=== PATIENT | female | born 1940 | race Caucasian/White ===

== ENCOUNTER → 2017-01-05 | Outpatient (CLI) | payer MEDICARE, OTHER ==
[~2017-01-05] MED LIST: AMLO5TAB4 PO; CARV6.2579 PO; ESTR2TAB PO; IRBE1TAB35 PO; MEDR2.5T21 PO
--- NOTE | 2017-01-05 17:52 | RADRPT ---
PROCEDURE: XR right kidney. CLINICAL INDICATION: Knee pain TECHNIQUE: AP weightbearing, lateral weightbearing and sunrise view are available for review. COMPARISON: 03/25/2016 FINDINGS: There is moderate osteoarthrosis involving the medial tibial femoral compartment, lateral tibial fem oral compartment and patellofemoral compartment. This is associated with joint space narrowing, subc hondral sclerosis and osteophytosis. There is otherwise normal mineralization, architecture and alignment. No fractures are identified. No osseous lesions are identified. The soft tissues are unremarkable. IMPRESSION: Moderate osteoarthrosis involving the medial tibial femoral compartment, lateral tibial femoral comp artment and patellofemoral compartment. RPTAT: HGDB .Rohit Lopez MD, MD Date Time Electronically viewed and signed by .Rohit Lopez MD, on 01/05/2017 17:52 .B/
--- NOTE | 2017-01-05 19:39 | HKNOTE ---
DATE OF SERVICE: 01/05/2017 The patient has degenerative osteoarthritis of her right knee. She comes in requesting a cortisone injection into the knee. The last injection gave her good relief. She can walk as far as she likes . She has no symptoms of an internal derangement of the knee. She does not use a cane. She is not on any medications for the knee. Note that she is back to ice skating since she had a left knee re placement. RIGHT KNEE: The right knee shows normal alignment. Active and passive extension is 0 degrees. Activ e and passive flexion lacks 20 degrees and there is marked pain. The medial and lateral collateral l igaments and cruciate ligaments are intact. Herrera test is negative. There is no effusion, tenderne ss, scarring, or cysts. Six plus crepitus of the knee and none in the patella. The patella tracks normally. There is no tenderness on the articular surface of the patella or in the patellar groove. The Q angle is normal. IMAGING: Plain x-rays of the right knee obtained today were reviewed and . Plain x-rays obtromán cottrell at the [facility] [place] today were reviewed (3 views). These show moderate narrowin g of the medial and lateral joint spaces and more marked narrowing of the patellofemoral joint. MANAGEMENT: Under sterile conditions, the patient was given injection of 2 mL of Kenalog and 6 mL o f 2% lidocaine into the knee and she will be seen again as necessary for further evaluation and candida tment. Dictated By: LANDRY FAULKNER/RICO Conf#: [id number] DID#: [id number]
== END | disposition home or self-care (01) ==
LOC: HKI 14:22
DX: M17.11 Unilateral primary osteoarthritis, right knee (principal)
CPT/HCPCS: 20610; 73562; G0463; J3301

== ENCOUNTER → 2019-02-23 | Outpatient (CLI) | payer MEDICARE, OTHER ==
--- NOTE | 2019-02-23 18:04 | CONS ---
Assessment/Plan Assessment/Plan Hospital Course (Demo Recall) 78-year-old female with right hip and knee pain. 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 However on radiographs of the hip today there are subtle lytic lesions at the base of the femoral neck. Given her history of 2 cancers and most recently lymphoma this needs to be further worked up to make sure this is not metastasis or other type of tumor. The right knee has a valgus deformity and has some instability. She would benefit from a lateral forms analysis manager brace as she has failed other conservative management including activity modification, ice, steroid injections. Plan: MRI with and without contrast for the right hip Right lateral forms analysis manager brace for the right knee Follow-up after MRI of right hip. If negative for any tumor will proceed with physical therapy for hip, knee, IT band tendinitis. Consultation Date/Type/Reason Admit Date/Time Date of Consultation: Feb 23, 2019 Reason for Consultation Right knee and hip pain Date/Time of Note DATE: 02/23/19 TIME: 17:49 Hx of Present Illness Is a 78-year-old female with a chief complaint of right knee pain. 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 No known metastasis. The pain began years ago. She has had a number of previous steroid injections by Dr. Alvarenga which provided significant relief. The patients pain is in the lateral aspect of the right knee. Pain is not radiating to the lower leg. The pain is rated as a 3/10. Patient denies complaints of numbness or tingling. She is very active and continues to ice skate. Ice skating significantly exacerbates her knee and hip pain. Patient has been taking Tylenol on a p.r.n. basis as well as using ice. In regards to the right hip pain the patient states the pain is in the groin, lateral aspect of the hip that radiates to the knee, anterior femur. She had a previous hip injection a number of years ago by Dr. Alvarenga. The pain is primarily weight bearing. It is described as a dull ache. The pain is rated as a 3/10 with activity and 3/10 at rest. Walking tolerance is 1 mile. No external support. The patient does admit to a limp. Navigates stairs with use of the banister. Has no difficulty with shoes and socks. No history of childhood or adolescent hip disease. Has risk factors for avascular necrosis. There are no symptoms to suggest referred pain from the back with radicular symptoms. Treatment to date has included oral anti-inflammatories, activity modification. The patient states that treatment to date has not provided adequate relief of symptoms, prompting consultation regarding operative and nonoperative treatment for right hip pain. Duration: Years for right knee. 2-4 weeks for right hip Injury: No Walking tolerance: 1 mile Limp: Yes Support: No Instability: Yes, right knee Stairs: With banister Physical Therapy: No Injections: Right hip injection by Dr. Alvarenga few years ago. Multiple right knee steroid injections NSAID's: No Prior surgery: No Back pain: No Knee pain: Yes Risk of AVN : Yes, history of lymphoma and colorectal cancer Patient denies fever, chills, shortness of breath, chest pain, nausea/vomiting, constipation, diarrhea, numbness, and tingling. 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 Colorectal [id number] hypertension Home Meds Reported Medications Medroxyprogesterone Acetate* (Medroxyprogesterone Acetate*) 2.5 Mg Tablet, 2.5 MG PO DAILY, TAB 04/27/16 Estradiol* (Estradiol*) 2 Mg Tablet, 0.5 MG PO DAILY, TAB 04/27/16 Carvedilol* (Carvedilol*) 6.25 Mg Tablet, 12.5 MG PO BID, #60 TAB 04/27/16 Irbesartan-Hydrochlorothiazide (Irbesartan-Hydrochlorothiazide) 300-12.5 Mg Tab, 1 EACH PO DAILY, TAB 04/27/16 Amlodipine Besylate* (Norvasc*) 5 Mg Tablet, 5 MG PO DAILY, TAB 04/27/16 Allergies: Coded Allergies: No Known Allergy (Unverified , 09/14/16) Past Surgical History Left total knee arthroplasty 2015Dr. Alvarenga Family History Significant Family History: no pertinent family hx Social History Alcohol Use: none Smoking Status: Former smoker Drug Use: none Exam/Review of Systems Exam Vitals Weight: 118 pounds Height: 5 foot Temperature: 90.4 Heart Rate: 80 Blood Pressure: 141/67 Respiratory Rate: 12 Exam General: Alert, oriented x3. No Acute Distress. Heart: Regular rate and rhythm. Lungs: No respiratory distress. No accessory muscle use. Musculoskeletal: Right Knee This is a well developed female who is alert, oriented times three and in no apparent distress. Skin is intact over the right knee as well as the lower extremity with no abrasions, lacerations, or ulcerations. Observation of the patient's gait reveals an antalgic gait with Valgus thrust. Frontal plane alignment is valgus. There is pain on palpation of lateral greater than medial joint line. The patient demonstrates grinding anteriorly with ROM. Range of motion: 0 extension to approximately 130 degrees of flexion. Collateral ligament testing reveals instability with varus or valgus stress at 0 and 30 degrees of flexion with varus stress. Negative Herrera's and negative posterior drawer. Neurovascularly intact with 5/5 EHL/tibialis anterior/gastroc. S Standing, the pelvis is level and supine there is no true leg length discrepancy. There is significant tenderness over trochanteric bursa and IT band. ----- Range of motion: Flexion: 120 Extension: 0 Internal rotation: 10 External rotation: 45 Abduction: 45 Adduction: 10 ----- Sitting there is no pelvic obliquity. Pain at the extremes of motion of the affected hip. Skin was intact throughout both lower extremities. Sensation intact to light touch in a sural, saphenous, deep peroneal, superficial peroneal, medial and lateral plantar nerve distribution. Neurovascular exam showed 5/5 strength in the abductors, quads, EHL/tibialis anterior/gastroc. Normal and symmetrical pulses were palpated in both the dorsalis pedis and posterior tibial arteries. There is no sign of venous stasis. Imaging Imaging The patient received a standard set of films today that were personally reviewed. Imaging included a standing bilateral knee AP, PA flexion, merchant views and a dedicated lateral of the affected knee: There is valgus alignment of the knee. There is severe loss of joint space lateral greater than medial compartment(s). There is osteophyte formation. There is subchondral sclerosis. There are subchondral cysts. Degenerative changes are most severe in the lateral com partment(s) The patient received a full set of films and personally reviewed by myself today in clinic including an AP pelvis and an AP and lateral of the affected hip. The hip is reduced. There is significant loss of joint space. There is osteophyte formation. There is subchondral sclerosis. There are subchondral cysts. There is no significant deformity of the the proximal femur, femoral neck, or acetabulum. The pelvis is in continuity. Bone quality radiographically: Fair Of note on the AP femur there are several lucent lesions at the base of the femoral neck the largest one being along the medial calcar. There is no cortical involvement or scalloping. The lesions are relatively well-defined with some sclerosis. Even patient's history of colorectal cancer and lymphoma malignancy cannot be ruled out. PRISCILA DAO MD Feb 23, 2019 18:00
--- NOTE | 2019-02-24 20:30 | RADRPT ---
PROCEDURE: XR Knees. CLINICAL INDICATION: Bilateral knee pain. TECHNIQUE: Total of six views. Frontal, oblique, and lateral views of both knees. COMPARISON: Right knee radiographs dated 01/05/2017. FINDINGS: On the right side there are degenerative changes with osteophytes arising from all 3 joint compartmen t margins. There is right lateral joint compartment narrowing, subarticular sclerosis, and deformity. There is no joint effusion. There is no fracture or lytic lesion. On the left side, there is a total knee constrained arthroplasty which appears satisfactory. There is no fracture or loosening. There is no lytic or blastic lesion. There is no joint effusion. IMPRESSION: 1. Severe degenerative changes of the right knee. 2. Satisfactory postoperative appearance of the left knee. RPTAT: QQ .Adrian Elizabeth MD, Date Time Electronically viewed and signed by .Adrian Elizabeth MD, on 02/24/2019 20:30 .R/
--- NOTE | 2019-02-24 20:32 | RADRPT ---
PROCEDURE: XR Right hip and pelvis. CLINICAL INDICATION: Right hip pain and pelvic pain. TECHNIQUE: 3 views. Frontal pelvis. Frontal and lateral right hip. COMPARISON: 03/27/2015. FINDINGS: There is no fracture or dislocation. The soft tissues are normal. There are moderate to severe degenerative changes of the right hip with joint space narrowing, osteop hytes, and subarticular sclerosis, worse than seen previously. There are moderate degenerative change s of the left hip with joint space narrowing and osteophytes. There is no lytic or blastic lesion. There are degenerative changes of the lower lumbar spine. IMPRESSION: 1. Moderate to severe degenerative changes of the right hip. 2. Moderate degenerative changes of the left hip. RPTAT: QQ .Adrian Elizabeth MD, MD Date Time Electronically viewed and signed by .Adrian Elizabeth MD, on 02/24/2019 20:31 .R/
== END | disposition home or self-care (01) ==
LOC: HKI 14:00
PROVIDERS: ATTEND Orthopaedic Surgery Adult Reconstructive Orthopaedic Surgery
DX: M16.11 Unilateral primary osteoarthritis, right hip (principal); M17.11 Unilateral primary osteoarthritis, right knee; M70.61 Trochanteric bursitis, right hip; M21.061 Valgus deformity, not elsewhere classified, right knee; Z85.72 Personal history of non-Hodgkin lymphomas; Z85.048 Personal history of other malignant neoplasm of rectum, rectosigmoid junction, and anus
CPT/HCPCS: 73502; 73562; G0463

== ENCOUNTER → 2019-03-16 | Outpatient (CLI) | payer MEDICARE, OTHER ==
--- NOTE | 2019-03-16 13:44 | CONS ---
Consult Date/Type/Reason Admit Date/Time Initial Consult Date Date/Time of Note DATE: 03/16/19 TIME: 13:37 Subjective 78-year-old female following up today for review of MRI of right hip. She was seen in clinic late last month and presented with right groin pain as well as right anterior femur pain right knee pain. On x-rays there is subtle small lucent lesions in the peritrochanteric region. She had a history of 2 cancers colorectal and splenic lymphoma. Given this history it was decided to order an MRI to rule out any metastatic lesions. She is also prescribed a brace to her right knee for her valgus deformity and instability. This is arriving next week as the first 1 did not feel quite right and they are readjusting the brace. She has no change in symptoms. She again reiterates at this time she has no interest in surgery. Objective Vitals Weight: 118 pound Height: 5 foot Temperature: 90.1 Heart Rate: 82 Blood Pressure: 131/72 Respiratory Rate: 12 Exam General: Awake, alert, in no acute distress, pleasant and cooperative Heart: regular rhythm Lungs: breathing comfortably, no tachypnea or dyspnea MUSCULOSKELETAL: Right lower extremity: Skin intact. Decreased range of motion of the hip with pain at extremes range of motion. There is tenderness palpation along the greater trochanter and IT band. There is tenderness palpation along the lateral aspect of the the knee. There is valgus deformity of the knee. Sensation intact to light touch in a sural, saphenous, deep peroneal, superficial peroneal, medial and lateral plantar nerve distribution. Motor is intact, patient able to dorsiflex and plantarflex ankle and extend and flex great toe. Dorsalis Pedis pulse +2, Brisk capillary refill. Compartments are soft. Calves non-tender to palpation bilaterally. Results/Medications Home Meds Reported Medications Medroxyprogesterone Acetate* (Medroxyprogesterone Acetate*) 2.5 Mg Tablet, 2.5 MG PO DAILY, TAB 04/27/16 Estradiol* (Estradiol*) 2 Mg Tablet, 0.5 MG PO DAILY, TAB 04/27/16 Carvedilol* (Carvedilol*) 6.25 Mg Tablet, 12.5 MG PO BID, #60 TAB 04/27/16 Irbesartan-Hydrochlorothiazide (Irbesartan-Hydrochlorothiazide) 300-12.5 Mg Tab, 1 EACH PO DAILY, TAB 04/27/16 Amlodipine Besylate* (Norvasc*) 5 Mg Tablet, 5 MG PO DAILY, TAB 04/27/16 Imaging MRI with and without contrast of the right hip was personally reviewed. Date of exam 03/08/2019 No enhancing or nonenhancing lesions in the bone or soft tissues. No signs of metastatic disease. There is mild to moderate osteoarthritis of the right hip. No subchondral cyst. Negative joint space. Osteophyte formation. Degenerative tearing of the entire labrum. Assessment/Plan Hospital Course (Demo Recall) 70-year-old female with history of colon cancer and splenic lymphoma now moderate arthritis of the right hip, moderate severe osteoarthritis of the right knee, greater trochanteric bursitis and IT band tendinitis. MRI with and without contrast was negative for any metastatic disease. At this time she is not interested in pursuing surgery. Plan: Lateral unloading brace right knee Physical therapy for right hip and knee osteoarthritis and greater trochanteric bursitis and IT band tendinitis Follow-up PRISCILA SCHMIDT MD Mar 16, 2019 13:44
== END | disposition home or self-care (01) ==
LOC: HKI 13:18
PROVIDERS: ATTEND Orthopaedic Surgery Adult Reconstructive Orthopaedic Surgery
DX: M13.851 Other specified arthritis, right hip (principal); M17.11 Unilateral primary osteoarthritis, right knee; M70.61 Trochanteric bursitis, right hip; Z85.038 Personal history of other malignant neoplasm of large intestine
CPT/HCPCS: G0463